=== PATIENT | male | born 1955 | race African-American/Black ===

== ENCOUNTER 2018-07-12 04:45 | Emergency (ER) | payer OTHER ==
[2018-07-12 04:52] VITALS: BP 145/77
[2018-07-12] MEDS ORDERED: LIDOCAINE 5% (700 MG) TRANSDERMAL ADH..PATCH TP ONE (05:03)
[2018-07-12] MEDS ORDERED: ACETAMINOPHEN 325 MG TABLET PO ONE (05:03)
[2018-07-12] MEDS ORDERED: IBUPROFEN 600 MG TABLET PO ONE (05:03)
--- NOTE | 2018-07-12 05:07 | ER Document Report ---
ED General - General Chief Complaint: Shoulder Pain Stated Complaint: SHOULDER PAIN Time Seen by Provider: 07/12/18 04:56 Notes: Patient is a 63-year-old male who presents to the emergency department with a chief complaint of right shoulder pain. His pain started this morning at 1:00 in the morning. It woke him up in the middle of the night. He states that it is a sharp sore pain. The pain is mainly at the top of his right shoulder, in his muscle. He has not taken any medication for the pain. 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 He is right handed and has been doing strenuous work the past 2 days. TRAVEL OUTSIDE OF THE [place] IN LAST 30 DAYS: No Past Medical History - General Information source: Patient - Social History Smoking Status: Never Smoker Drug Abuse: None Lives with: Spouse/Significant other Family History: Reviewed & Not Pertinent - Past Medical History Cardiac Medical History: Reports: Hx Hypertension Denies: Hx Coronary Artery Disease, Hx Heart Attack Pulmonary Medical History: Denies: Hx Asthma, Hx Bronchitis, Hx COPD, Hx Pneumonia Neurological Medical History: Denies: Hx Cerebrovascular Accident, Hx Seizures Musculoskeletal Medical History: Denies Hx Arthritis Past Surgical History: Denies: Hx Pacemaker - Immunizations Hx Diphtheria, Pertussis, Tetanus Vaccination: Yes Review of Systems - Review of Systems Notes: REVIEW OF SYSTEMS: CONSTITUTIONAL : Denies recent illness. Denies recent unintentional weight loss. Denies fever, chills, or sweats. EENT: Denies eye, ear, throat, or mouth pain, discharge, or symptoms. Denies nasal or sinus congestion. CARDIOVASCULAR: Denies chest pain. RESPIRATORY: Denies shortness of breath, cough, congestion, difficulty breathing, or wheezing. GASTROINTESTINAL: Denies nausea, vomiting, and diarrhea. Denies abdominal pain. Denies constipation. GENITOURINARY: Denies difficulty urinating, burning, blood in urine, urgency or frequency. MUSCULOSKELETAL: See HPI SKIN: Denies rash, itchiness, or lesions HEMATOLOGIC : Denies easy bruising or bleeding. LYMPHATIC: Denies swollen, painful, enlarged glands. NEUROLOGICAL: Denies no numbness or tingling denies weakness. Denies headache. Denies altered mental status. Denies alteration in speech. PSYCHIATRIC: Denies stress, anxiety, alteration in sleep patterns, or depress ion. All other systems reviewed and negative. Physical Exam - Vital signs Vitals: Temp Pulse Resp BP Pulse Ox 98.4 F 60 20 145/77 H 96 07/12/18 04:51 07/12/18 04:51 07/12/18 04:51 07/12/18 04:51 07/12/18 04:51 - Notes Notes: PHYSICAL EXAMINATION: GENERAL: Appears well, healthy, well-nourished, no acute distress. HEAD: Normocephalic, atraumatic. EYES: PERRL, conjunctiva normal, all extraocular movements intact, sclera nonicteric ENT: Moist mucous membranes. NECK: Supple, no noticeable swelling, redness, rash. Normal range of motion. LUNGS: Equal breath sounds bilaterally and clear to auscultation. No wheezes rales or rhonchi. CARDIOVASCULAR: S1-S2, regular rate, regular rhythm. Radial pulses 2+, normal. ABDOMEN: Normoactive bowel sounds. Soft, nontender, no guarding, no rebound tenderness, and no masses palpated. EXTREMITIES: Normal strength and range of motion, no pitting or edema. No cyanosis. NEUROLOGICAL: Moves all extremities upon command. Strength 5/5 in all extremities. PSYCH: Normal mood, normal affect. SKIN: Warm, dry. No rash, lesions, ulcerations noted. Normal skin turgor. MUSCULOSKELETAL: Tenderness to right shoulder near the trapezius muscle. Course - Re-evaluation Re-evalutation: 07/12/18 05:07 The patient's symptoms are muscular. I massaged the area and he had relief of his pain. He will be given Motrin and Tylenol for pain control and a lidocaine patch will be placed to his right shoulder. 07/12/18 05:40 Patient states that he feels much better after receiving the Motrin, Tylenol, and lidocaine patch. He will be sent home on this regimen. I do not suspect he has any skeletal injury at this time. I also have low suspicion for any life threatening injury at this time. Verbal discharge instructions were given to the patient. They verbalized understanding. They are stable for discharge. - Vital Signs Vital signs: Temp Pulse Resp BP Pulse Ox 98.4 F 60 20 145/77 H 96 07/12/18 04:51 07/12/18 04:51 07/12/18 04:51 07/12/18 04:51 07/12/18 04:51 Discharge - Discharge Clinical Impression: Right shoulder pain Qualifiers: Chronicity: acute Qualified Code(s): M25.511 - Pain in right shoulder Condition: Stable Disposition: HOME, SELF-CARE Additional Instructions: You were seen in the emergency department for right shoulder pain. Your pain is due to sore muscles from going back to work and doing strenuous repetitive motions. You may take Tylenol 1000 mg and Motrin 600 mg every 6 hours as needed for your pain. A lidocaine patch was placed to the area. You may use the prescription provided for the lidocaine patch. Or you may use Aspercreme with lidocaine on your shoulder. If you decide to use the patch, place 1 patch to your shoulder every 12 hours and to have the patch off for 12 hours, then you can place another patch on your shoulder the next day. You can massage the area to help with the pain. If you are unable to move your arm, continue to have symptoms with Motrin and Tylenol treatment, or have any symptoms that are worrisome to you, please return to the emergency department. Prescriptions: RX: Lidocaine [Lidoderm 5% (700 mg) Transdermal Patch] 1 patch TP DAILY #10 adh..patch Forms: Return to Work Referrals: SHAGGY VALENCIA MD [EMERITUS] - Follow up as needed
== END 2018-07-12 05:47 | disposition home or self-care (01) ==
LOC: ER 04:45
DX: M25.511 Pain in right shoulder (principal); M79.18 Myalgia, other site; I10 Essential (primary) hypertension
CPT/HCPCS: 99283